=== PATIENT | female | born 1935 | race Caucasian/White ===

== ENCOUNTER → 2016-10-03 | Outpatient (CLI) | payer OTHER, MEDICAID | END | disposition home or self-care (01) | LOC: XYW 08:52 | PROVIDERS: ATTEND Family Medicine | DX: I50.22 Chronic systolic (congestive) heart failure (principal); I34.0 Nonrheumatic mitral (valve) insufficiency | CPT/HCPCS: 93306 ==

== ENCOUNTER 2016-11-16 18:06 | Inpatient (IN) | payer OTHER, MEDICAID ==
[~2016-11-16] VITALS: Ht 162.6 cm; Wt 108.0 kg
[2016-11-16 19:07] LABS: Basophils # (auto) 0.1 uL; Basophils % (auto) 0.4 % (0.0-2.0); CONDITION Y; Eosinophils # (auto) 0 uL; Eosinophils % (auto) 0.3 % (0.0-7.0); Hematocrit 39.7 % (36.0-46.0); Hemoglobin 13.4 g/dL (12.2-16.2); Lymphocytes # (auto) 1.5 uL; Lymphocytes % (auto) 11.6 % (10.0-50.0); Mean Corpuscular Hemoglobin 29.2 pg (28.0-32.0); Mean Corpuscular Hgb Conc. 33.7 g/dL (32.0-36.0); Mean Corpuscular Volume 86.6 fL (80.0-100.0); Mean Platelet Volume 10.6 fL (7.4-10.4); Monocytes # (auto) 1.4 uL; Monocytes % (auto) 10.9 % (0.0-12.0); Neutrophils # (auto) 9.7 uL; Neutrophils % (auto) 76.8 % (37.0-80.0); Platelet Count (auto) 212 10^3/uL (140-450); Red Cell Distribution Width 13.9 % (11.6-16.0); White Blood Cell 12.6 10^3/uL (4.4-10.8)
[2016-11-16 19:21] LABS: Albumin 2.9 g/dL (3.4-5.0); Alkaline Phosphatase 109 U/L (45-117); Anion Gap 11 (5-15); Aspartate Aminotransferase 21 U/L (15-37); Bilirubin, Total 1.1 mg/dL (0.2-1.0); Blood Urea Nitrogen 21 mg/dL (7-18); Calcium 8.8 mg/dL (8.5-10.1); Carbon Dioxide 23 mmol/L (21-32); Chloride 99 mmol/L (98-107); GFR African American 50 mL/min; GFR Non-African American 42 mL/min; Glucose 150 mg/dL (74-106); Sodium 133 mmol/L (136-145); Total Protein 8.3 g/dL (6.4-8.2)
[2016-11-16 19:55] LABS: B-Type Natriuretic Peptide 39.89 pg/mL (0-100)
[2016-11-16 20:13] LABS: Temperature: 20.7 C (20.0-25.0)
[2016-11-17] MEDS ORDERED: KETOROLAC TROMETH 30 MG/ML 1ML VIAL IV ONE (00:30)
[2016-11-17] MEDS ORDERED: HYDROcodone-ACET 7.5/325MG TAB PO ONE (00:30)
[2016-11-17] MEDS ORDERED: CLINDAMYCIN 900MG IV 50 ML IV ONE (00:30)
[2016-11-17 00:56] LABS: Basophils # (auto) 0.1 uL; Basophils % (auto) 0.7 % (0.0-2.0); CONDITION Y; Eosinophils # (auto) 0 uL; Eosinophils % (auto) 0.2 % (0.0-7.0); Hematocrit 39.2 % (36.0-46.0); Hemoglobin 13.1 g/dL (12.2-16.2); Lymphocytes # (auto) 2.2 uL; Lymphocytes % (auto) 15.9 % (10.0-50.0); Mean Corpuscular Hemoglobin 28.9 pg (28.0-32.0); Mean Corpuscular Hgb Conc. 33.4 g/dL (32.0-36.0); Mean Corpuscular Volume 86.6 fL (80.0-100.0); Mean Platelet Volume 10.2 fL (7.4-10.4); Monocytes # (auto) 1.4 uL; Monocytes % (auto) 10.3 % (0.0-12.0); Neutrophils # (auto) 9.9 uL; Neutrophils % (auto) 72.9 % (37.0-80.0); Platelet Count (auto) 211 10^3/uL (140-450); Red Cell Distribution Width 13.3 % (11.6-16.0); White Blood Cell 13.6 10^3/uL (4.4-10.8)
[2016-11-17 01:03] LABS: INR 1.06 (0.9-1.15); Partial Thromboplastin Time 33.8 sec (22.64-33.71); Prothrombin Time 11.6 sec (9.37-12.3)
[2016-11-17 01:07] LABS: Albumin 2.7 g/dL (3.4-5.0); Anion Gap 12 (5-15); Aspartate Aminotransferase 19 U/L (15-37); BUN/Creatinine Ratio 17.3; Blood Urea Nitrogen 24 mg/dL (7-18); Calcium 8.7 mg/dL (8.5-10.1); Carbon Dioxide 22 mmol/L (21-32); Chloride 101 mmol/L (98-107); GFR African American 47 mL/min; GFR Non-African American 39 mL/min; Glucose 154 mg/dL (74-106); Potassium 4.1 mmol/L (3.5-5.1); Sodium 135 mmol/L (136-145)
[2016-11-17] MEDS ORDERED: ACETAMINOPHEN 325 MG TAB PO ONE (01:15)
[2016-11-17 01:26] LABS: Alkaline Phosphatase 109 U/L (45-117); Bilirubin, Total 1.3 mg/dL (0.2-1.0); Total Protein 8.1 g/dL (6.4-8.2)
[2016-11-17 02:36] LABS: Urine Bilirubin Negative (Negative); Urine Color Yellow (Yellow); Urine Glucose Normal (Normal); Urine Nitrite Negative (Negative); Urine RBC 1 /hpf (0 - 4); Urine Squamous Epithelial Cell FEW /hpf (<5)
[2016-11-17 02:37] LABS: Urine Blood 2+ /uL (Negative); Urine Ketone 2+ (Negative)
[2016-11-17] MEDS ORDERED: KETOROLAC TROMETH 30 MG/ML 1ML VIAL IV PRN (04:30)
[2016-11-17] MEDS ORDERED: DEXTROSE (50%) 50ML SYRG IV PRN (04:30)
[2016-11-17] MEDS ORDERED: HYDROcodone-ACET 10/325MG TAB PO PRN (04:30)
[2016-11-17] MEDS: InsuLIN REG 1unit/0.01ml Soln (100units/ml) SC SCH ×3 (06:00→18:44)
[2016-11-17] MEDS ORDERED: CLINDAMYCIN 600 MG/4 ML VL IM SCH (06:00)
[2016-11-17] MEDS: ACCU-CHEK COMFORT CURVE STRIP VI SCH ×4 (06:09→23:55)
[2016-11-17 07:30] VITALS: BP 118/49
[2016-11-17] MEDS: CLINDAMYCIN 600MG IV 50 ML IV SCH ×3 (07:43→21:29)
[2016-11-17 08:00] VITALS: BP 118/49
[2016-11-17] MEDS ORDERED: CARV3.1240 PO (08:19)
[2016-11-17] MEDS ORDERED: GLIP-115 PO (08:19)
[2016-11-17] MEDS ORDERED: LOSA50TA6 PO (08:19)
[2016-11-17 09:00] VITALS: BP 118/49
[2016-11-17] MEDS: PANTOPRAZOLE SODIUM 40 MG/10 ML VIAL IV SCH ×2 (10:00→10:56)
[2016-11-17] MEDS ORDERED: ENOXAPARIN SOD 40 MG/0.4 ML SYRINGE SC SCH (10:00)
[2016-11-17] MEDS ORDERED: FUROSEMIDE 40 MG/4 ML VIAL IV SCH (10:00)
[2016-11-17] MEDS ORDERED: POTASSIUM CHL 20 Meq TABLET PO SCH (10:00)
[2016-11-17] MEDS: LEVOFLOXACIN 500MG 100 ML IV SCH (10:54)
[2016-11-17] MEDS: ASPirin 81 mg TAB PO SCH (10:59)
[2016-11-17] MEDS: CARVEDILOL 12.5 MG TAB PO SCH ×2 (11:02→21:31)
[2016-11-17] MEDS: LOSARTAN POTASSIUM 50 MG TAB PO SCH (11:03)
[2016-11-17] MEDS: PIOGLITAZONE HYDROCHLORIDE 30 MG TAB PO SCH (11:15)
[2016-11-17 13:00] VITALS: BP 138/56
[2016-11-17] MEDS ORDERED: CLINDAMYCIN 600 MG/4 ML VL IV SCH (14:00)
[2016-11-17 17:00] VITALS: BP 110/41
[2016-11-17] MEDS: ENOXAPARIN SOD 40 MG/0.4 ML SYRINGE SC SCH (21:31)
[2016-11-17 22:00] VITALS: BP 112/51
[2016-11-18] MEDS: InsuLIN REG 1unit/0.01ml Soln (100units/ml) SC SCH ×3 (00:02→12:50)
[2016-11-18 05:00] VITALS: BP 104/50
[2016-11-18] MEDS: ACCU-CHEK COMFORT CURVE STRIP VI SCH ×2 (06:15→12:00)
[2016-11-18] MEDS: CLINDAMYCIN 600MG IV 50 ML IV SCH ×2 (06:16→14:24)
[2016-11-18 07:27] LABS: Basophils # (auto) 0 uL; Basophils % (auto) 0.5 % (0.0-2.0); CONDITION Y; Eosinophils # (auto) 0.1 uL; Eosinophils % (auto) 1.8 % (0.0-7.0); Hematocrit 36.7 % (36.0-46.0); Lymphocytes # (auto) 1.3 uL; Lymphocytes % (auto) 17.9 % (10.0-50.0); Mean Corpuscular Hemoglobin 28.7 pg (28.0-32.0); Mean Corpuscular Hgb Conc. 32.8 g/dL (32.0-36.0); Mean Corpuscular Volume 87.3 fL (80.0-100.0); Mean Platelet Volume 10.3 fL (7.4-10.4); Monocytes # (auto) 0.7 uL; Neutrophils # (auto) 5.1 uL; Neutrophils % (auto) 69.8 % (37.0-80.0); Platelet Count (auto) 170 10^3/uL (140-450); Red Cell Distribution Width 13.6 % (11.6-16.0); White Blood Cell 7.3 10^3/uL (4.4-10.8)
[2016-11-18 07:56] LABS: BUN/Creatinine Ratio 26.8; Calcium 8.2 mg/dL (8.5-10.1); Potassium 3.6 mmol/L (3.5-5.1)
[2016-11-18 09:00] VITALS: BP 125/56
[2016-11-18] MEDS: ASPirin 81 mg TAB PO SCH (09:54)
[2016-11-18] MEDS: LEVOFLOXACIN 500MG 100 ML IV SCH (09:55)
[2016-11-18] MEDS: CARVEDILOL 12.5 MG TAB PO SCH (09:56)
[2016-11-18] MEDS: ENOXAPARIN SOD 40 MG/0.4 ML SYRINGE SC SCH (09:56)
[2016-11-18] MEDS: PIOGLITAZONE HYDROCHLORIDE 30 MG TAB PO SCH (09:56)
[2016-11-18] MEDS: PANTOPRAZOLE SODIUM 40 MG/10 ML VIAL IV SCH (09:56)
[2016-11-18] MEDS: LOSARTAN POTASSIUM 50 MG TAB PO SCH (09:56)
[2016-11-18 12:16] VITALS: BP 133/53
[2016-11-18 14:46] VITALS: BP 133/53
[2016-11-18 16:20] VITALS: BP 120/63
[2016-11-18 16:30] VITALS: BP 120/63
== END 2016-11-18 16:30 | disposition home or self-care (01) | DRG 872 ==
LOC: ER 18:08 → OVERFLOW 18:09 → TELE-EAST 11-17 06:14 → EAST 11-17 17:48
PROVIDERS: ADMIT Family Medicine; ATTEND Family Medicine
DX: A41.9 Sepsis, unspecified organism (principal); E87.1 Hypo-osmolality and hyponatremia; I13.0 Hypertensive heart and chronic kidney disease with heart failure and stage 1 through stage 4 chronic kidney disease, or unspecified chronic kidney disease; L03.115 Cellulitis of right lower limb; N39.0 Urinary tract infection, site not specified; Z68.41 Body mass index [BMI] 40.0-44.9, adult; E11.22 Type 2 diabetes mellitus with diabetic chronic kidney disease; E11.21 Type 2 diabetes mellitus with diabetic nephropathy; E11.65 Type 2 diabetes mellitus with hyperglycemia; E66.01 Morbid (severe) obesity due to excess calories; I44.7 Left bundle-branch block, unspecified; I34.0 Nonrheumatic mitral (valve) insufficiency; I50.9 Heart failure, unspecified; I87.2 Venous insufficiency (chronic) (peripheral); M19.90 Unspecified osteoarthritis, unspecified site; N18.3 Chronic kidney disease, stage 3 (moderate)
CPT/HCPCS: 36415; 71010; 73562; 80048; 80053; 80061; 81001; 82962; 83036; 83880; 84484; 85025; 85610; 85730; 86141; 87040; 87086; 87088; 87186; 93005; 93970; 96365; 96366; 96375; C9113; J1815; J1885; J1956; J3490

== ENCOUNTER → 2016-11-28 | Outpatient (CLI) | payer OTHER, MEDICAID ==
[~2016-11-28] MED LIST: CARV3.1240 PO; GLIP-115 PO; LOSA50TA6 PO
== END | disposition home or self-care (01) ==
LOC: LAB 12:00
PROVIDERS: ATTEND Family Medicine
DX: E11.9 Type 2 diabetes mellitus without complications (principal); I13.0 Hypertensive heart and chronic kidney disease with heart failure and stage 1 through stage 4 chronic kidney disease, or unspecified chronic kidney disease; I50.9 Heart failure, unspecified; N18.3 Chronic kidney disease, stage 3 (moderate)
CPT/HCPCS: 36415; 83036

== ENCOUNTER 2023-01-02 14:08 | Emergency (ER) | payer MEDICARE, MEDICAID ==
[~2023-01-02] VITALS: Ht 160 cm; Wt 79.5 kg
[~2023-01-02 14:08] MED LIST changes: -GLIP-115 PO; +GLIP5TAB12 PO; +LOSA50TA46 PO; -LOSA50TA6 PO
[2023-01-02 16:59] VITALS: BP 128/93; PULSE 60; RESP 18; TEMP 97.4; O2SAT 100
== END 2023-01-02 17:21 | disposition home or self-care (01) ==
LOC: ER 14:08 → EDBD 14:08 → ER 17:06
DX: S16.1XXA Strain of muscle, fascia and tendon at neck level, initial encounter (principal); S60.221A Contusion of right hand, initial encounter; S50.02XA Contusion of left elbow, initial encounter; S70.12XA Contusion of left thigh, initial encounter; S70.11XA Contusion of right thigh, initial encounter; I11.0 Hypertensive heart disease with heart failure; I50.89 Other heart failure; E11.9 Type 2 diabetes mellitus without complications; Z88.0 Allergy status to penicillin; Z88.8 Allergy status to other drugs, medicaments and biological substances; Z79.899 Other long term (current) drug therapy; W18.09XA Striking against other object with subsequent fall, initial encounter; Y93.89 Activity, other specified; Y92.89 Other specified places as the place of occurrence of the external cause; Y99.8 Other external cause status
CPT/HCPCS: 70450; 72125; 72192; 73080; 73130